=== PATIENT | female | born 1955 | race Caucasian/White ===

== ENCOUNTER 2024-09-12 10:31 | Emergency (ER) | payer MEDICARE, SELFPAY ==
[2024-09-12] VITALS (37 sets, daily range): BP systolic 116; BP diastolic 95; PULSE 88–105; TEMP 36.9; O2SAT 91–98; BMI 33.3
--- NOTE | 2024-09-12 10:51 | ECG_ITS ---
The [facility] Test Date: 2024-09-12 Pat Name: ENE MORRIS Department: Room: - Gender: Female Communications Officer: : 1955 Requested By: [id number] Order Number: [id number] Reading MD: ROSITA LOGAN Measurements Intervals [place] Rate: 103 P: 79 MA: 166 QRS: 264 QRSD: 112 T: 73 QT: 350 QTc: 410 Interpretive Statements 1120 Sinus tachycardia Right bundle branch block 5130 Right ventricular hypertrophy 9150 abnormal ECG Compared to ECG 10/24/2021 16:43:50 Sinus rhythm no longer present Indeterminate axis no longer present Electronically Signed On 09-12-2024 20:25:01 EST by ROSITA LGOAN
[2024-09-12] MEDS: 0.9 % SODIUM CHLORIDE 1,000 ML 500 ML IV (11:12)
[2024-09-12 11:13] LABS: Basophils Absolute Auto 0.1 10^3/uL (0.0-0.1); Basophils Percent Auto 0.7 % (0.2-2.0); Hemoglobin 16.6 g/dL (12.0-16.0); Immature Granulocytes Abs Auto 0.05 10^3/uL (0.00-0.03); Immature Granulocytes Pct Auto 0.7 % (0.0-0.5); Lymphocytes Absolute Auto 0.9 10^3/uL (1.2-3.8); Lymphocytes Percent Auto 12.7 % (20.5-60.0); Mean Corpuscular HGB Conc 33.2 g/dL (29.9-35.2); Mean Corpuscular Hemoglobin 30.9 pg (26.7-34.0); Mean Corpuscular Volume 93.1 fL (81.0-99.0); Mean Platelet Volume 10.1 fL (9.5-13.5); Monocytes Absolute Auto 0.8 10^3/uL (0.3-0.8); Monocytes Percent Auto 10.9 % (1.7-12.0); Neutrophils Absolute Auto 5.3 10^3/uL (1.4-6.5); Platelet Count 239 10^3/uL (150-450); Red Blood Count 5.37 10^6/uL (4.20-5.40); Red Cell Distribution Width 13.3 % (11.0-15.0); White Blood Count 7.1 10^3/uL (4.0-11.0)
[2024-09-12 11:30] LABS: Alanine Aminotransferase 44 U/L (14-59); Albumin Globulin Ratio 0.9; Albumin Level 3.5 g/dL (3.4-5.0); Alkaline Phosphatase 95 U/L (46-116); Anion Gap 15.5; Aspartate Amino Transferase 41 U/L (15-37); BUN Creatinine Ratio 11.9; Bilirubin Total 0.4 mg/dL (0.2-1.0); Calcium 8.4 mg/dL (8.5-10.1); Carbon Dioxide 25.5 mmol/L (21.0-32.0); Chloride 100 mmol/L (98-107); Estimated GFR (African America 39 (>=60 mL/min/1.73m^2); Estimated GFR (Non-African Ame 32 (>=60 mL/min/1.73m^2); Glucose 122 mg/dL (74-106); Sodium 137 mmol/L (136-145); Total Protein 7.5 g/dL (6.4-8.2); Troponin I High Sensitivity 26.8 pg/mL (4.0-51.3)
[2024-09-12 13:30] LABS: Troponin I High Sensitivity 32.7 pg/mL (4.0-51.3)
[2024-09-12 13:35] LABS: Influenza Virus A Antigen Negative; Influenza Virus B Antigen Negative; Internal Control Within Normal Limits; SARS-CoV-2 Ag NEGATIVE (NEGATIVE)
--- NOTE | 2024-09-12 15:09 | ED.GENADUL1 ---
HPI HPI - General Adult General Chief complaint: Dizziness Stated complaint: DIZZINESS Time Seen by Provider: 09/12/24 10:50 Source: patient Mode of arrival: ambulance Limitations: no limitations History of Present Illness HPI narrative: 69-year-old female who is a coming to the ER after she felt dizzy. Patient brought to us by the EMS. She was for the last 3 days for having cough chills and generalized body ache and decreased p.o. intake, she mentioned that she tried showering today when she felt dizzy in the shower and she slid her self down and called the EMS She did not have any fall or hit her head She does not have any symptoms at the moment and she was hungry Related Data Home Medications ?Medication ?Instructions ?Recorded ?Confirmed No Known Home Medications 09/12/24 09/12/24 Allergies Allergy/AdvReac Type Severity Reaction Status Date / Time No Known Drug Allergies Allergy Verified 09/12/24 10:33 Opioid HPI Opioid Management Most Recent Opioid Data: No Data to Display Review of Systems ROS Status of ROS 10 or more systems reviewed and unremarkable except as noted in history and below Exam Constitutional Vital Signs, click to edit/add: Last Vital Signs Temp 98.5 F 09/12/24 10:33 Pulse 99 H 09/12/24 10:33 Resp 18 09/12/24 10:33 BP 116/95 H 09/12/24 10:33 Pulse Ox 95 09/12/24 10:33 O2 Del Method Room Air 09/12/24 10:33 Course Vital Signs Vital signs: Vital Signs Temperature 98.5 F 09/12/24 10:33 Pulse Rate 99 H 09/12/24 10:33 Respiratory Rate 18 09/12/24 10:33 Blood Pressure 116/95 H 09/12/24 10:33 Pulse Oximetry 95 09/12/24 10:33 Oxygen Delivery Method Room Air 09/12/24 10:33 Temperature 98.5 F 09/12/24 10:33 Pulse Rate 99 H 09/12/24 10:33 Respiratory Rate 18 09/12/24 10:33 Blood Pressure 116/95 H 09/12/24 10:33 Pulse Oximetry 95 09/12/24 10:33 Oxygen Delivery Method Room Air 09/12/24 10:33 Medical Decision Making [facility] Narrative Medical decision making narrative: The patient EKG in the ER showing sinus rhythm with a heart rate of [address] elevation or depression Chest x-ray showed no acute pathology Creatinine shows 1.59------- the patient was provided with IV fluid She really had no symptoms in the ER and she initially mentioned that she although lives by herself she is able to take care of herself at home and she have her neighbor also that will spend time with her Patient will be discharged home with hydration instructed and her COVID and flu test are negative Troponin repeated twice was negative The patient is to follow up with primary care physician in next 2-3 days or to return to the emergency department should any of the signs or symptoms worsen or new symptoms develop. The patient agrees with the following Diagnosis and Treatment plan and the patient will be discharged home. Lab Data Labs: Lab Results 09/12/24 09/12/24 09/12/24 Range/Units 11:00 13:01 13:10 WBC 7.1 (4.0-11.0) 10^3/uL RBC 5.37 (4.20-5.40) 10^6/uL Hgb 16.6 H (12.0-16.0) g/dL Hct 50.0 H (36.0-48.0) % MCV 93.1 (81.0-99.0) fL MCH 30.9 (26.7-34.0) pg MCHC 33.2 (29.9-35.2) g/dL RDW 13.3 (11.0-15.0) % Plt Count 239 (150-450) 10^3/uL MPV 10.1 (9.5-13.5) fL Neut % (Auto) 75.0 (43.0-75.0) % Lymph % (Auto) 12.7 L (20.5-60.0) % Garden % (Auto) 10.9 (1.7-12.0) % Eos % (Auto) 0.0 L (0.9-7.0) % Baso % (Auto) 0.7 (0.2-2.0) % Neut # (Auto) 5.3 (1.4-6.5) 10^3/uL Lymph # (Auto) 0.9 L (1.2-3.8) 10^3/uL Garden # (Auto) 0.8 (0.3-0.8) 10^3/uL Eos # (Auto) 0.0 (0.0-0.7) 10^3/uL Baso # (Auto) 0.1 (0.0-0.1) 10^3/uL Abs Immat Gran (auto) 0.05 H (0.00-0.03) 10^3/uL Imm/Tot Granulo (auto) 0.7 H (0.0-0.5) % Sodium 137 (136-145) mmol/L Potassium 4.0 (3.5-5.1) mmol/L Chloride 100 (98-107) mmol/L Carbon Dioxide 25.5 (21.0-32.0) mmol/L Anion Gap 15.5 BUN 19.0 H (7.0-18.0) mg/dL Creatinine 1.59 H (0.55-1.02) mg/dL Est GFR ( Amer) 39 L (>=60 mL/min/1.73m^2) Est GFR (Non-Af Amer) 32 L (>=60 mL/min/1.73m^2) BUN/Creatinine Ratio 11.9 Glucose 122 H (74-106) mg/dL Calcium 8.4 L (8.5-10.1) mg/dL Total Bilirubin 0.4 (0.2-1.0) mg/dL AST 41 H (15-37) U/L ALT 44 (14-59) U/L Alkaline Phosphatase 95 (46-116) U/L Troponin I High Sens 26.8 32.7 (4.0-51.3) pg/mL Total Protein 7.5 (6.4-8.2) g/dL Albumin 3.5 (3.4-5.0) g/dL Globulin 4.0 g/dL Albumin/Globulin Ratio 0.9 Influenza Type A Ag Negative Influenza Type B Ag Negative SARS-CoV-2 Ag (CV2AG) Negative (NEGATIVE) Discharge Plan Discharge Chief Complaint: Dizziness Clinical Impression: Dizziness, SHARIFA (acute kidney injury) Patient Disposition: Home, Self-Care Time of Disposition Decision: 15:31 Condition: Good Prescriptions / Home Meds: No Action No Known Home Medications Print Language: Tamazight Instructions: Acute Kidney Injury (DC), Dizziness (ED) Referrals: Physician,Non-Staff, [Primary Care Provider] - 1 week
== END 2024-09-12 16:44 | disposition home or self-care (01) ==
PROVIDERS: Emergency Provider Emergency Medicine
DX: N17.9 Acute kidney failure, unspecified (principal); R42 Dizziness and giddiness
CPT/HCPCS: 36415; 71045; 80053; 84484; 85025; 87804; 87811; 93005; 99285

== ENCOUNTER 2024-09-21 09:17 | Outpatient (OUT) | payer MEDICARE, SELFPAY ==
--- OUTSIDE RECORDS SUMMARY | 2024-09-21 09:41 | XMS_ITS | CCD ---
Author Organization [facility] Care Team Providers Care Senior Medical Director Name Role Phone DR ARTURO DAVIS Admitting Unavailable SUSAN, DR MORRIS Attending Unavailable REQUEST, DR ABURTO LISTED Primary Care Unavaila mk NAVA, DR NAKUL Sommer Consulting Unavailable EVIN BABB Consulting Unavailable Problems Problem Classification Problem Date Documented Da te Episodic/Chronic Other nervous system disorders (4 sources) Anesthesia of skin; Translations: [ANESTHESIA OF SKIN] Onset: 10-24-2021 Episodic Other nervous system disorders (1 source) Paresthesia of skin; Translations: [PARESTHESIA OF SKIN] Onset: 10-25-2021 Episodic Substance-related disorders (1 source) Nicotine dependence, cigarettes, uncomplicated; Translations: [NICOTINE DEPEND CIGARETTES UNCOMP] Onset: 10-25-2021 Chronic Results Test Name Value Interpretation Reference Range Facil ity CBC AUTO DIFFon 10-24-2021 BASO # 0.1 103/ul Normal 0.0-0.1 [facility] Comment on above: Performed By: #### C BC #### [facility] [address] [place] [address] Dr. Rashawn Harrison Basophils/100 WBC (Bld) 1.1 % Normal 0.2-2.0 [facility] Comment on above: Performed By: #### C BC #### [facility] [address] [address] [address] Rashawn Harrison EO # 0.1 103/ul Normal 0.0-0.7 [facility] Comment on above: Performed By: #### C BC #### [facility] [address] [address] [address] Rashawn Harrison Eosinophils/100 WBC (Bld) 1.3 % Normal 0.9-7.0 [facility] Comment on above: Performed By: #### C BC #### [facility] [address] [place] [address] Dr. Rashawn Harrison Erythrocyte distribution width (RBC) [Ratio] 12.6 % Normal 11.0-15.0 [facility] Comment on above: Performed By: #### C BC #### [facility] [address] [place] [address] Dr. Rashawn Harrison Hematocrit (Bld) [Volume fraction] 45.9 % Normal 36.0-48.0 [facility] Comment on above: Performed By: #### C BC #### [facility] [address] [place] [address] Dr. Rashawn Harrison Hemoglobin (Bld) [Mass/Vol] 15.5 g/dL Normal 12.0-16.0 [facility] Comment on above: Performed By: #### C BC #### [facility] [address] [place] [address] Dr. Rashawn Harrison IG # 0.01 10e3/ul Normal 0.00-0.03 [facility] Comment on above: Performed By: #### C BC #### [facility] [address] [place] [address] Dr. Rashawn Harrison IG % 0.1 % Normal 0.0-0.5 [facility] Comment on above: Performed By: #### C BC #### [facility] [address] [place] [address] Dr. Rashawn Harrison LYMPH # 3.1 103/ul Normal 1.2-3.8 [facility] Comment on above: Performed By: #### C BC #### [facility] [address] [place] [address] Dr. Rashawn Harrison Lymphocytes/100 WBC (Bld) 37.1 % Normal 20.5-60.0 [facility] Comment on above: Performed By: #### C BC #### [facility] [address] [place] [address] Dr. Rashawn Harrison MANUAL DIFF REQ NO Normal [facility] Comment on above: Performed By: #### C BC #### [facility] [address] [place] [address] Dr. Rashawn Harrison MCH (RBC) [Entitic mass] 30.9 pg Normal 26.7-34.0 [facility] Comment on above: Performed By: #### C BC #### [facility] [address] [place] [address] Dr. Rashawn Harrison MCHC (RBC) [Mass/Vol] 33.8 g/dL Normal 29.9-35.2 [facility] Comment on above: Performed By: #### C BC #### [facility] [address] [place] [address] Dr. Rashawn Harrison MCV (RBC) [Entitic vol] 91.4 fL Normal 81.0-99.0 [facility] Comment on above: Performed By: #### C BC #### [facility] [address] [place] [address] Dr. Rashawn Harrison MONO # 0.5 103/ul Normal 0.3-0.8 [facility] Comment on above: Performed By: #### C BC #### [facility] [address] [place] [address] Dr. Rashawn Harrison Monocytes/100 WBC (Bld) 5.9 % Normal 1.7-12.0 [facility] Comment on above: Performed By: #### C BC #### [facility] [address] [place] [address] Dr. Rashawn Harrison NEUT # 4.5 103/ul Normal 1.4-6.5 [facility] Comment on above: Performed By: #### C BC #### [facility] [address] [place] [address] Dr. Rashawn Harrison Neutrophils/100 WBC (Bld) 54.5 % Normal 43.0-75.0 [facility] Comment on above: Performed By: #### C BC #### [facility] [address] [place] [address] Dr. Rashawn Harrison Platelet mean volume (Bld) [Entitic vol] 9.9 fL Normal 9.5-13.5 [facility] Comment on above: Performed By: #### C BC #### [facility] [address] [place] [address] Dr. Rashawn Harrison PLT 288 103/ul Normal 150-450 [facility] Comment on above: Performed By: #### C BC #### [facility] [address] [place] [address] Dr. Rashawn Harrison RBC 5.02 106/ul Normal 4.20-5.40 [facility] Comment on above: Performed By: #### C BC #### [facility] [address] [place] [address] Dr. Rashawn Harrison WBC 8.3 103/ul Normal 4.0-11.0 [facility] Comment on above: Performed By: #### C BC #### [facility] [address] [address] [address] HEAD WO CONon 10-24-2021 CT HEAD WO CON EXAMINATION: CT HEAD WO CON HISTORY: Paresthesia , acute lip and tongue numbness for 5 days, occasional right arm numbness COMPARISON: No relevant comparison available. TECHNIQUE: Axial CT images were obtained without IV contrast. Dose reduction techniques were achieved by using automated exposure control and/or adjustment of mA and/or kV according to patient size and/or use of iterative reconstruction technique. FINDINGS: BRAIN: No edema, hemorrhage, mass, acute infarction, or inappropriate atrophy. CSF SPACES: No hydrocephalus, subarachnoid hemorrhage, or mass. Appropriate for age. SKULL: No fracture, mass, or other significant visible lesion. Incidental small exostosis projecting from left frontal bone. SINUSES: No significant mucosal thickening or fluid on the limited views. ORBITS: No appreciable abnormality on the limited views. OTHER: Negative IMPRESSION: 1. No intracranial hemorrhage or suspicious abnormality. Electronically authenticated by: NAKUL NAVA Date: 2021-10-24 17:26 Normal [facility] MAGNESIUMon 10-24-2021 Magnesium [Mass/Vol] 2.2 mg/dL Normal 1.6-2.3 [facility] Comment on above: Performed By: #### H STROPN, CMP, MG #### [facility] [address] [place] [address] Dr. Rashawn Harrison PROF 14(COMP METB)on 022 Albumin [Mass/Vol] 3.7 g/dL Normal 3.4-5.0 [facility] Comment on above: Performed By: #### H STROPN, CMP, MG #### [facility] [address] [address] [address] Rashawn Harrison Albumin/Globulin [Mass ratio] 1.0 {ratio} Normal [facility] Comment on above: Performed By: #### H STROPN, CMP, MG #### [facility] [address] [address] [address] Rashawn Harrison ALP [Catalytic activity/Vol] 111 U/L Normal 46-116 [facility] Comment on above: Performed By: #### H STROPN, CMP, MG #### [facility] [address] [address] [address] Rashawn Harrison ALT [Catalytic activity/Vol] 18 U/L Normal 14-59 [facility] Comment on above: Performed By: #### H STROPN, CMP, MG #### [facility] [address] [place] [address] Dr. Rashawn Harrison Anion gap [Moles/Vol] 12.8 mmol/L Normal [facility] Comment on above: Performed By: #### H STROPN, CMP, MG #### [facility] [address] [place] [address] Dr. Rashawn Harrison AST [Catalytic activity/Vol] 14 U/L Critically low 15-37 [facility] Comment on above: Performed By: #### H STROPN, CMP, MG #### [facility] [address] [place] [address] Dr. Rashawn Harrison Bilirubin [Mass/Vol] 0.3 mg/dL Normal 0.2-1.3 [facility] Comment on above: Performed By: #### H STROPN, CMP, MG #### [facility] [address] [place] [address] Dr. Rashawn Harrison Calcium [Mass/Vol] 8.8 mg/dL Normal 8.5-10.1 [facility] Comment on above: Performed By: #### H STROPN, CMP, MG #### [facility] [address] [place] [address] Dr. Rashawn Harrison Chloride [Moles/Vol] 103 mmol/L Normal 98-107 [facility] Comment on above: Performed By: #### H STROPN, CMP, MG #### [facility] [address] [address] [address] Rashawn Harrison CO2 [Moles/Vol] 25.0 mmol/L Normal 22.0-30.0 [facility] Comment on above: Performed By: #### H STROPN, CMP, MG #### [facility] [address] [address] [address] Rashawn Harrison Creatinine [Mass/Vol] 0.81 mg/dL Normal 0.52-1.04 [facility] Comment on above: Performed By: #### H STROPN, CMP, MG #### [facility] [address] [place] [address] Dr. Rashawn Harrison EGFR-AF BHUTANESE >60 Normal >=60 [facility] Comment on above: Performed By: #### H STROPN, CMP, MG #### [facility] [address] [place] [address] Dr. Rashawn Harrison EGFR-NON AF BHUTANESE >60 Normal >=60 [facility] Comment on above: Performed By: #### H STROPN, CMP, MG #### [facility] [address] [address] [address] Rashawn Harrison Globulin (S) [Mass/Vol] 3.8 g/dL Normal [facility] Comment on above: Performed By: #### H STROPN, CMP, MG #### [facility] [address] [address] [address] Rashawn Harrison Glucose [Mass/Vol] 111 mg/dL Critically high 74-106 [facility] Comment on above: Performed By: #### H STROPN, CMP, MG #### [facility] [address] [address] [address] Rashawn Harrison Potassium [Moles/Vol] 3.8 mmol/L Normal 3.4-5.0 [facility] Comment on above: Performed By: #### H STROPN, CMP, MG #### [facility] [address] [address] [address] Rashawn Harrison Protein [Mass/Vol] 7.5 g/dL Normal 6.1-8.2 [facility] Comment on above: Performed By: #### H STROPN, CMP, MG #### [facility] [address] [place], [place] [address] Dr. Rashawn Harrison Sodium [Moles/Vol] 137 mmol/L Normal 137-145 [facility] Comment on above: Performed By: #### H STROPN, CMP, MG #### [facility] [address] [address] [address] Rashawn Harrison Urea nitrogen [Mass/Vol] 9.0 mg/dL Normal 7.0-18.0 [facility] Comment on above: Performed By: #### H STROPN, CMP, MG #### [facility] [address] [address] [address] Rashawn Harrison Urea nitrogen/Creatinine [Mass ratio] 11.1 mg/mg Normal [facility] Comment on above: Performed By: #### H STROPN, CMP, MG #### [facility] [address] [address] [address] Rashawn Harrison TROPONIN, HIGH SENSITIVITYon 10-24-2021 HSTROP 7.1 pg/mL Normal 4.0-35.5 [facility] Comment on above: Result Comment: CUT- OFF POINTS HAVE BEEN ESTABLISHED BASED ON THE FOURTH UNIVERSAL DEFINITIONS OF MYOCARDIAL INFARCTION. THE UPPER REFERENCE LIMIT (URL) OF TROPONIN, DEFINED THE 99TH PERCENTILE OF cTnI DISTRIBUTION IN A REFERENCE POPULATION, HAS BEEN CONFIRMED THE DECISION THRESHOLD FOR ME DIAGNOSIS. Performed By: #### H STROPN, CMP, MG #### [facility] [address] [address] [address] Rashawn Harrison Encounters Encounter Date Encounter Type Care Provider Facility Start: 10-24-2021 End: 10-24-[address] ARTURO DAVIS Facility: Payers Date Payer Category Payer Self-pay 1955 Unknown [id number] Summary Purpose Family History No Family History Records Found Advance Directives No Advanced Directives Records Found Additional Source Comments INFORMATION SOURCE (unrecogn ized section and content) DATE CREATED AUTHOR 10/27/2021 [facility] FOR RECORDS PERTAINING TO PATIENTS WHO ARE OR HAVE BEEN ENROLLED IN A CHEMICAL DEPENDENCY/SUBSTANCEABUSE PROGRAM, SOME INFORMATION MAY BE OMITTED. This clinical summary was aggregated from multiple sources. Caution should be exercised in using it in the provision of clinical care. This summary normalizes information from multiple sources, and as a consequence, information in this document may materially change the coding, format and clinical context of patient data. In addition, data may be omitted in some cases. CLINICAL DECISIONS SHOULD BE BASED ON THE PRIMARY CLINICAL RECORDS. [facility] [facility]. provides no warranty or guarantee of the accuracy or completeness of information in this document.
--- NOTE | 2024-09-21 09:54 | XR_ITS ---
The [address] [address] Patient Name: ENE MORRIS MRN: [id number] date: 1955 Sex: F Assigned Patient Location: LAB Current Patient Location: LAB Accession/Order Number: [id number] Exam Date: 09/21/2024 23:05 Report Date: 09/21/2024 23:06 At the request of: EVERETTE LAZCANO Procedure: XR abdomen 1V KUB: CLINICAL INFORMATION: Constipation. COMPARISON: None FINDINGS: No bowel obstruction. No significant stool burden. Phleboliths are seen within the pelvis. Osseous structures demonstrate degenerative change. XR/XR abdomen 1V IMPRESSION: No acute process. Impression dictated by: Gordon Mancuso Jr.OFrancis09/21/2024 11:06 PM Dictation Location: [place] [address] Electronically authenticated by: [id number] Y Date: 09/21/2024 23:06
[2024-09-21 10:10] LABS: Basophils Absolute Auto 0.1 10^3/uL (0.0-0.1); Basophils Percent Auto 0.8 % (0.2-2.0); Eosinophils Absolute Auto 0.1 10^3/uL (0.0-0.7); Eosinophils Percent Auto 1.2 % (0.9-7.0); Hematocrit 44.2 % (36.0-48.0); Hemoglobin 14.9 g/dL (12.0-16.0); Immature Granulocytes Abs Auto 0.15 10^3/uL (0.00-0.03); Immature Granulocytes Pct Auto 2.5 % (0.0-0.5); Lymphocytes Absolute Auto 1.8 10^3/uL (1.2-3.8); Lymphocytes Percent Auto 29.3 % (20.5-60.0); Mean Corpuscular HGB Conc 33.7 g/dL (29.9-35.2); Mean Corpuscular Hemoglobin 30.3 pg (26.7-34.0); Mean Platelet Volume 9.7 fL (9.5-13.5); Monocytes Absolute Auto 0.5 10^3/uL (0.3-0.8); Monocytes Percent Auto 8.9 % (1.7-12.0); Neutrophils Absolute Auto 3.5 10^3/uL (1.4-6.5); Neutrophils Percent Auto 57.3 % (43.0-75.0); Platelet Count 390 10^3/uL (150-450); Red Blood Count 4.91 10^6/uL (4.20-5.40); Red Cell Distribution Width 12.8 % (11.0-15.0); White Blood Count 6.1 10^3/uL (4.0-11.0)
[2024-09-21 10:32] LABS: Estimated Average Glucose 111 mg/dL; Glycohemoglobin A1C 5.5 % (4.5-6.2)
[2024-09-21 10:46] LABS: Alanine Aminotransferase 27 U/L (14-59); Albumin Globulin Ratio 0.8; Albumin Level 3.3 g/dL (3.4-5.0); Alkaline Phosphatase 88 U/L (46-116); Anion Gap 12.4; Aspartate Amino Transferase 23 U/L (15-37); BUN Creatinine Ratio 6.7; Bilirubin Total 0.5 mg/dL (0.2-1.0); Carbon Dioxide 28.4 mmol/L (21.0-32.0); Chloride 104 mmol/L (98-107); Chol HDL Ratio 3.5; Cholesterol 163 mg/dL (<=200); Estimated GFR (African America >60 (>=60 mL/min/1.73m^2); Estimated GFR (Non-African Ame >60 (>=60 mL/min/1.73m^2); Free T3 2.49 pg/mL (2.18-3.98); Globulin 3.9 g/dL; Glucose 102 mg/dL (74-106); HDL Cholesterol 47 mg/dL (40-60); Potassium 3.8 mmol/L (3.5-5.1); Sodium 141 mmol/L (136-145); Total Protein 7.2 g/dL (6.4-8.2); Triglycerides 163 mg/dL (<=150); VLDL CHOLESTEROL 32.6 mg/dL
[2024-09-22 03:11] LABS: Insulin 22.6 uIU/mL (2.6-24.9)
== END 2024-09-21 09:18 | disposition home or self-care (01) ==
LOC: LAB 09:22
PROVIDERS: PCP Nurse Practitioner Family; Visit Provider Nurse Practitioner Family
DX: R32 Unspecified urinary incontinence (principal); F17.200 Nicotine dependence, unspecified, uncomplicated; K59.00 Constipation, unspecified; E78.5 Hyperlipidemia, unspecified; R73.09 Other abnormal glucose; D64.9 Anemia, unspecified; E03.9 Hypothyroidism, unspecified; E55.9 Vitamin D deficiency, unspecified
CPT/HCPCS: 36415; 74018; 80053; 80061; 81001; 82306; 83036; 83525; 83540; 84436; 84443; 84481; 85025; 87086

== ENCOUNTER 2024-09-22 11:38 | Outpatient (REF) | payer MEDICARE, SELFPAY ==
--- OUTSIDE RECORDS SUMMARY | 2024-09-22 11:42 | XMS_ITS | CCD ---
Author Organization [facility] Care Team Providers Care Butadiene Converter Operator Name Role Phone DR ARTURO DAVIS Admitting [...] 10-24-2021 BASO # 0.1 103/ul Normal 0.0-0.1 [facility] Comment on above: Performed By: #### C BC #### [facility] [address] [place] [address] Dr. Rashawn Harrison Basophils/100 WBC (Bld) 1.1 % Normal 0.2-2.0 [facility] Comment on above: Performed By: #### C BC #### [facility] [address] [address] [address] Rashawn Harrison EO # 0.1 103/ul Normal 0.0-0.7 [facility] Comment on above: Performed By: #### C BC #### [facility] [address] [address] [address] Rashawn Harrison Eosinophils/100 WBC (Bld) 1.3 % Normal 0.9-7.0 [facility] Comment on above: Performed By: #### C BC #### [facility] [address] [place] [address] Dr. Rashawn Harrison Erythrocyte distribution width (RBC) [Ratio] 12.6 % Normal 11.0-15.0 [facility] Comment on above: Performed By: #### C BC #### [facility] [address] [place] [address] Dr. Rashawn Harrison Hematocrit (Bld) [Volume fraction] 45.9 % Normal 36.0-48.0 [facility] Comment on above: Performed By: #### C BC #### [facility] [address] [place] [address] Dr. Rashawn Harrison Hemoglobin (Bld) [Mass/Vol] 15.5 g/dL Normal 12.0-16.0 [facility] Comment on above: Performed By: #### C BC #### [facility] [address] [place] [address] Dr. Rashawn Harrison IG # 0.01 10e3/ul Normal 0.00-0.03 [facility] Comment on above: Performed By: #### C BC #### [facility] [address] [place] [address] Dr. Rashawn Harrison IG % 0.1 % Normal 0.0-0.5 [facility] Comment on above: Performed By: #### C BC #### [facility] [address] [place] [address] Dr. Rashawn Harrison LYMPH # 3.1 103/ul Normal 1.2-3.8 [facility] Comment on above: Performed By: #### C BC #### [facility] [address] [place] [address] Dr. Rashawn Harrison Lymphocytes/100 WBC (Bld) 37.1 % Normal 20.5-60.0 [facility] Comment on above: Performed By: #### C BC #### [facility] [address] [place] [address] Dr. Rashawn Harrison MANUAL DIFF REQ NO Normal [facility] Comment on above: Performed By: #### C BC #### [facility] [address] [place] [address] Dr. Rashawn Harrison MCH (RBC) [Entitic mass] 30.9 pg Normal 26.7-34.0 [facility] Comment on above: Performed By: #### C BC #### [facility] [address] [place] [address] Dr. Rashawn Harrison MCHC (RBC) [Mass/Vol] 33.8 g/dL Normal 29.9-35.2 [facility] Comment on above: Performed By: #### C BC #### [facility] [address] [place] [address] Dr. Rashawn Harrison MCV (RBC) [Entitic vol] 91.4 fL Normal 81.0-99.0 [facility] Comment on above: Performed By: #### C BC #### [facility] [address] [place] [address] Dr. Rashawn Harrison MONO # 0.5 103/ul Normal 0.3-0.8 [facility] Comment on above: Performed By: #### C BC #### [facility] [address] [place] [address] Dr. Rashawn Harrison Monocytes/100 WBC (Bld) 5.9 % Normal 1.7-12.0 [facility] Comment on above: Performed By: #### C BC #### [facility] [address] [place] [address] Dr. Rashawn Harrison NEUT # 4.5 103/ul Normal 1.4-6.5 [facility] Comment on above: Performed By: #### C BC #### [facility] [address] [place] [address] Dr. Rashawn Harrison Neutrophils/100 WBC (Bld) 54.5 % Normal 43.0-75.0 [facility] Comment on above: Performed By: #### C BC #### [facility] [address] [place] [address] Dr. Rashawn Harrison Platelet mean volume (Bld) [Entitic vol] 9.9 fL Normal 9.5-13.5 [facility] Comment on above: Performed By: #### C BC #### [facility] [address] [place] [address] Dr. Rashawn Harrison PLT 288 103/ul Normal 150-450 [facility] Comment on above: Performed By: #### C BC #### [facility] [address] [place] [address] Dr. Rashawn Harrison RBC 5.02 106/ul Normal 4.20-5.40 [facility] Comment on above: Performed By: #### C BC #### [facility] [address] [place] [address] Dr. Rashawn Harrison WBC 8.3 103/ul Normal 4.0-11.0 [facility] Comment on above: Performed By: #### C BC #### [facility] [address] [address] [address] HEAD WO CONon [...] NAKUL NAVA Date: 2021-10-24 17:26 Normal [facility] MAGNESIUMon 10-24-2021 Magnesium [Mass/Vol] 2.2 mg/dL Normal 1.6-2.3 [facility] Comment on above: Performed By: #### H STROPN, CMP, MG #### [facility] [address] [place] [address] Dr. Rashawn Harrison PROF 14(COMP METB)on 022 Albumin [Mass/Vol] 3.7 g/dL Normal 3.4-5.0 [facility] Comment on above: Performed By: #### H STROPN, CMP, MG #### [facility] [address] [address] [address] Rashawn Harrison Albumin/Globulin [Mass ratio] 1.0 {ratio} Normal [facility] Comment on above: Performed By: #### H STROPN, CMP, MG #### [facility] [address] [address] [address] Rashawn Harrison ALP [Catalytic activity/Vol] 111 U/L Normal 46-116 [facility] Comment on above: Performed By: #### H STROPN, CMP, MG #### [facility] [address] [address] [address] Rashawn Harrison ALT [Catalytic activity/Vol] 18 U/L Normal 14-59 [facility] Comment on above: Performed By: #### H STROPN, CMP, MG #### [facility] [address] [place] [address] Dr. Rashawn Harrison Anion gap [Moles/Vol] 12.8 mmol/L Normal [facility] Comment on above: Performed By: #### H STROPN, CMP, MG #### [facility] [address] [place] [address] Dr. Rashawn Harrison AST [Catalytic activity/Vol] 14 U/L Critically low 15-37 [facility] Comment on above: Performed By: #### H STROPN, CMP, MG #### [facility] [address] [place] [address] Dr. Rashawn Harrison Bilirubin [Mass/Vol] 0.3 mg/dL Normal 0.2-1.3 [facility] Comment on above: Performed By: #### H STROPN, CMP, MG #### [facility] [address] [place] [address] Dr. Rashawn Harrison Calcium [Mass/Vol] 8.8 mg/dL Normal 8.5-10.1 [facility] Comment on above: Performed By: #### H STROPN, CMP, MG #### [facility] [address] [place] [address] Dr. Rashawn Harrison Chloride [Moles/Vol] 103 mmol/L Normal 98-107 [facility] Comment on above: Performed By: #### H STROPN, CMP, MG #### [facility] [address] [address] [address] Rashawn Harrison CO2 [Moles/Vol] 25.0 mmol/L Normal 22.0-30.0 [facility] Comment on above: Performed By: #### H STROPN, CMP, MG #### [facility] [address] [address] [address] Rashawn Harrison Creatinine [Mass/Vol] 0.81 mg/dL Normal 0.52-1.04 [facility] Comment on above: Performed By: #### H STROPN, CMP, MG #### [facility] [address] [place] [address] Dr. Rashawn Harrison EGFR-AF MONTENEGRIN >60 Normal >=60 [facility] Comment on above: Performed By: #### H STROPN, CMP, MG #### [facility] [address] [place] [address] Dr. Rashawn Harrison EGFR-NON AF MONTENEGRIN >60 Normal >=60 [facility] Comment on above: Performed By: #### H STROPN, CMP, MG #### [facility] [address] [address] [address] Rashawn Harrison Globulin (S) [Mass/Vol] 3.8 g/dL Normal [facility] Comment on above: Performed By: #### H STROPN, CMP, MG #### [facility] [address] [address] [address] Rashawn Harrison Glucose [Mass/Vol] 111 mg/dL Critically high 74-106 [facility] Comment on above: Performed By: #### H STROPN, CMP, MG #### [facility] [address] [address] [address] Rashawn Harrison Potassium [Moles/Vol] 3.8 mmol/L Normal 3.4-5.0 [facility] Comment on above: Performed By: #### H STROPN, CMP, MG #### [facility] [address] [address] [address] Rashawn Harrison Protein [Mass/Vol] 7.5 g/dL Normal 6.1-8.2 [facility] Comment on above: Performed By: #### H STROPN, CMP, MG #### [facility] [address] [place], [place] [address] Dr. Rashawn Harrison Sodium [Moles/Vol] 137 mmol/L Normal 137-145 [facility] Comment on above: Performed By: #### H STROPN, CMP, MG #### [facility] [address] [address] [address] Rashawn Harrison Urea nitrogen [Mass/Vol] 9.0 mg/dL Normal 7.0-18.0 [facility] Comment on above: Performed By: #### H STROPN, CMP, MG #### [facility] [address] [address] [address] Rashawn Harrison Urea nitrogen/Creatinine [Mass ratio] 11.1 mg/mg Normal [facility] Comment on above: Performed By: #### H STROPN, CMP, MG #### [facility] [address] [address] [address] Rashawn Harrison TROPONIN, HIGH SENSITIVITYon 10-24-2021 HSTROP 7.1 pg/mL Normal 4.0-35.5 [facility] Comment on above: Result Comment: CUT- OFF POINTS HAVE BEEN ESTABLISHED BASED ON THE FOURTH UNIVERSAL DEFINITIONS OF MYOCARDIAL INFARCTION. THE UPPER REFERENCE LIMIT (URL) OF TROPONIN, DEFINED THE 99TH PERCENTILE OF cTnI DISTRIBUTION IN A REFERENCE POPULATION, HAS BEEN CONFIRMED THE DECISION THRESHOLD FOR MA DIAGNOSIS. Performed By: #### H STROPN, CMP, MG #### [facility] [address] [address] [address] Rashawn Harrison Encounters Encounter Date Encounter Type Care Provider Facility Start: 10-24-2021 End: 10-24-[address] ARTURO DAVIS Facility: Payers Date Payer Category Payer Self-pay 1955 Unknown [id number] Summary Purpose Family History No Family History [...] BE BASED ON THE PRIMARY CLINICAL RECORDS. [facility]. provides no warranty or guarantee of the accuracy or completeness of information in this document.
[2024-09-22 12:54] LABS: Bilirubin Urine NEGATIVE (NEGATIVE); Blood Urine NEGATIVE (NEGATIVE); Clarity Urine CLEAR (CLEAR); Color Urine YELLOW (YELLOW); Glucose Urine UA NEGATIVE (NEGATIVE); Ketones Urine TRACE mg/dL (NEGATIVE); Leukocyte Esterase Urine NEGATIVE (NEGATIVE); Nitrite Urine POSITIVE (NEGATIVE); Protein Urine TRACE mg/dL (NEG/TRACE)
[2024-09-22 13:12] LABS: Bacteria Urine SMALL #/HPF (NONE SEEN); Cast Seen? NONE SEEN #/LPF (NONE SEEN); Crystals Seen? None Seen #/HPF (None Seen); Mucus Urine NONE SEEN (NONE SEEN); RBC Urine 0-2 #/HPF (0-2); Squamous Epithelial Cell Urine FEW #/LPF (NONE/RARE); Urine Culture Indicated ALREADY ORDERED; WBC Urine 0-2 #/HPF (NONE SEEN)
== END 2024-09-22 11:39 | disposition home or self-care (01) ==
LOC: LAB 11:38
PROVIDERS: PCP Nurse Practitioner Family; Visit Provider Nurse Practitioner Family
DX: E78.5 Hyperlipidemia, unspecified (principal); R32 Unspecified urinary incontinence; F17.200 Nicotine dependence, unspecified, uncomplicated; R73.09 Other abnormal glucose; D64.9 Anemia, unspecified; E03.9 Hypothyroidism, unspecified; E55.9 Vitamin D deficiency, unspecified
CPT/HCPCS: 81001; 87086